=== PATIENT | male | born 1965 ===

== ENCOUNTER 2023-04-02 02:11 | Inpatient (IN) | payer OTHER ==
[2023-04-02 04:02] LABS: BASO % 0.6 % (0-2.0); EOS % 7.1 % (0-4.5); HEMATOCRIT 29.1 % (35.4-49); HEMOGLOBIN 9.1 GM/dL (11.7-16.9); LYMPH % 23.7 % (8-40); MCHC 31.4 g/dl (32.0-35.9); MEAN CELL VOLUME 95.6 fl (80-96); MEAN PLT VOLUME 9.4 fl (7.5-11.1); MONO % 3.7 % (3.8-10.2); NEUT % 64.9 % (42.8-82.8); PLATELET COUNT 225 10^3/uL (134-434); RBC 3.05 M/mm3 (4.00-5.60); RDW 18.7 % (11.9-15.9); WHITE BLOOD COUNT 9.5 K/mm3 (4.0-10.0)
[2023-04-02 04:34] LABS: POTASSIUM 3.5 mmol/L (3.5-5.1)
[2023-04-02 04:36] LABS: CALCIUM 9.1 mg/dL (8.5-10.1)
[2023-04-02 04:37] LABS: ALBUMIN 2.7 g/dl (3.4-5.0); BLOOD UREA NITROGEN 38.9 mg/dL (7-18); MAGNESIUM 2.9 mg/dL (1.8-2.4)
[2023-04-02 04:40] LABS: CREATININE 0.5 mg/dL (0.55-1.3)
[2023-04-02 04:42] LABS: BILIRUBIN,TOTAL 0.4 mg/dL (0.2-1); TOT PROT 7.1 g/dl (6.4-8.2)
[2023-04-02] MEDS: SODIUM CHLORIDE 1,000 ML IV SCH (06:14)
[2023-04-02 06:59] LABS: EPI CELLS 14 /uL (0-25.1); HYALINE CASTS 3 /uL (0-3.1); PH,URINE 7.5 (5.0-8.0); URINE APPEARANCE CLEAR; URINE BACTERIA 7 /uL (0-1359); URINE BILIRUBIN NEGATIVE (NEGATIVE); URINE COLOR YELLOW; URINE GLUCOSE (UA) NEGATIVE (NEGATIVE); URINE KETONE NEGATIVE (NEGATIVE); URINE LEUK ESTERASE 1+ (NEGATIVE); URINE NITRITE NEGATIVE (NEGATIVE); URINE PROTEIN TRACE (NEGATIVE); URINE RBC 115 /uL (0-23.9); URINE UROBILINOGEN 0.2 mg/dL (0.2-1.0); URINE WBC 52 /uL (0-25.8)
[2023-04-02 07:51] LABS: YEAST NEGATIVE (NEGATIVE)
[2023-04-02 10:18] LABS: POTASSIUM 3.4 mmol/L (3.5-5.1)
[2023-04-02 10:19] LABS: CALCIUM 9.5 mg/dL (8.5-10.1)
[2023-04-02 10:20] LABS: BLOOD UREA NITROGEN 37.1 mg/dL (7-18)
[2023-04-02 10:23] LABS: CREATININE 0.4 mg/dL (0.55-1.3)
[2023-04-02] MEDS ORDERED: SODIUM CHLORIDE 0.45% 1,000 ML with POTASSIUM CHLORIDE 20 MEQ IV SCH (11:45)
[2023-04-02] MEDS ORDERED: SODIUM CHLORIDE 0.45% 1,000 ML IV SCH (11:45)
[2023-04-02] MEDS ORDERED: ACETAMINOPHEN 1000 MG/100 ML BAG IVPB PRN (11:47)
[2023-04-02] MEDS ORDERED: ALBUTEROL SO4 2.5/IPRATROPIUM 0.5 INH SOL 3 ML VIAL.NEB. NEB ONE (12:13)
[2023-04-02] MEDS: ALBUTEROL SO4 2.5/IPRATROPIUM 0.5 INH SOL 3 ML VIAL.NEB. NEB SCH (12:17)
[2023-04-02] MEDS: POTASSIUM CHLORIDE 20 MEQ in DEXTROSE 5%-WATER - 1,000 ML IV SCH (18:36)
[2023-04-02] MEDS: POTASSIUM CHLORIDE ORAL LIQUID 20 MEQ/15 ML PO ONE (18:36)
[2023-04-03 02:15] LABS: BLOOD UREA NITROGEN 35.1 mg/dL (7-18); CALCIUM 9.1 mg/dL (8.5-10.1); CREATININE 0.4 mg/dL (0.55-1.3); POTASSIUM 3.5 mmol/L (3.5-5.1)
[2023-04-03 09:59] LABS: BASO % 0.5 % (0-2.0); EOS % 2.7 % (0-4.5); HEMATOCRIT 29.2 % (35.4-49); HEMOGLOBIN 9.2 GM/dL (11.7-16.9); LYMPH % 17.6 % (8-40); MCH 30.1 pg (25.7-33.7); MCHC 31.5 g/dl (32.0-35.9); MEAN CELL VOLUME 95.7 fl (80-96); MEAN PLT VOLUME 9.5 fl (7.5-11.1); NEUT % 74.2 % (42.8-82.8); PLATELET COUNT 219 10^3/uL (134-434); RBC 3.05 M/mm3 (4.00-5.60); RDW 19.3 % (11.9-15.9)
[2023-04-03 10:34] LABS: ALBUMIN 2.6 g/dl (3.4-5.0); BILIRUBIN,TOTAL 0.5 mg/dL (0.2-1); BLOOD UREA NITROGEN 25.5 mg/dL (7-18); CALCIUM 9.5 mg/dL (8.5-10.1); CREATININE 0.4 mg/dL (0.55-1.3); MAGNESIUM 2.5 mg/dL (1.8-2.4); PHOSPHOROUS 2.4 mg/dL (2.5-4.9); POTASSIUM 3.9 mmol/L (3.5-5.1); TOT PROT 7.2 g/dl (6.4-8.2)
[2023-04-03 20:32] VITALS: BMI 24.5
[2023-04-03] MEDS: ASCORBIC ACID 500 MG TABLET (FP) GT SCH (21:23)
[2023-04-03] MEDS ORDERED: ASCORBIC ACID 500 MG TABLET (FP) PO SCH (22:00)
[2023-04-04] MEDS: AMINO ACIDS/PROTEIN HYDROLYS 30 ML LIQUID.PKT PO SCH (08:33)
[2023-04-04 08:50] LABS: BASO % 0.7 % (0-2.0); HEMATOCRIT 27.5 % (35.4-49); HEMOGLOBIN 8.6 GM/dL (11.7-16.9); LYMPH % 23.2 % (8-40); MCH 30.1 pg (25.7-33.7); MCHC 31.3 g/dl (32.0-35.9); MEAN CELL VOLUME 96.3 fl (80-96); MEAN PLT VOLUME 9.3 fl (7.5-11.1); MONO % 5.1 % (3.8-10.2); PLATELET COUNT 217 10^3/uL (134-434); RBC 2.86 M/mm3 (4.00-5.60); RDW 19.4 % (11.9-15.9); WHITE BLOOD COUNT 8.5 K/mm3 (4.0-10.0)
[2023-04-04 09:03] LABS: POTASSIUM 3.8 mmol/L (3.5-5.1)
[2023-04-04 09:13] LABS: CALCIUM 9.1 mg/dL (8.5-10.1)
[2023-04-04 09:14] LABS: ALBUMIN 2.4 g/dl (3.4-5.0); BLOOD UREA NITROGEN 18.2 mg/dL (7-18)
[2023-04-04 09:16] LABS: CREATININE 0.3 mg/dL (0.55-1.3)
[2023-04-04 09:17] LABS: BILIRUBIN,TOTAL 0.4 mg/dL (0.2-1)
[2023-04-04 09:18] LABS: TOT PROT 6.7 g/dl (6.4-8.2)
[2023-04-04] MEDS: MULTIVITAMINS (DAILY MVI) TABLET (FP) PO SCH (10:32)
[2023-04-04] MEDS: ZINC SULFATE 220 MG CAPSULE (FP) PO SCH (10:33)
[2023-04-05 12:26] LABS: EOS % 4.3 % (0-4.5); HEMATOCRIT 31.7 % (35.4-49); LYMPH % 24.2 % (8-40); MCH 30.1 pg (25.7-33.7); MCHC 31.4 g/dl (32.0-35.9); MEAN CELL VOLUME 95.7 fl (80-96); MEAN PLT VOLUME 9.3 fl (7.5-11.1); MONO % 5.5 % (3.8-10.2); PLATELET COUNT 257 10^3/uL (134-434); RBC 3.31 M/mm3 (4.00-5.60); RDW 19.3 % (11.9-15.9); WHITE BLOOD COUNT 9.1 K/mm3 (4.0-10.0)
[2023-04-05 12:38] LABS: POTASSIUM 4.1 mmol/L (3.5-5.1)
[2023-04-05 12:44] LABS: CALCIUM 9.4 mg/dL (8.5-10.1)
[2023-04-05 12:45] LABS: ALBUMIN 2.6 g/dl (3.4-5.0); BLOOD UREA NITROGEN 19.1 mg/dL (7-18)
[2023-04-05 12:48] LABS: CREATININE 0.3 mg/dL (0.55-1.3)
[2023-04-05 12:50] LABS: BILIRUBIN,TOTAL 0.4 mg/dL (0.2-1)
[2023-04-07 09:26] LABS: BASO % 1.3 % (0-2.0); EOS % 4.9 % (0-4.5); HEMATOCRIT 28.2 % (35.4-49); LYMPH % 24.4 % (8-40); MCH 30.1 pg (25.7-33.7); MCHC 31.9 g/dl (32.0-35.9); MEAN CELL VOLUME 94.2 fl (80-96); MONO % 5.9 % (3.8-10.2); NEUT % 63.5 % (42.8-82.8); PLATELET COUNT 288 10^3/uL (134-434); RDW 19.4 % (11.9-15.9); WHITE BLOOD COUNT 9.1 K/mm3 (4.0-10.0)
[2023-04-07 09:47] LABS: POTASSIUM 4.6 mmol/L (3.5-5.1)
[2023-04-07 09:53] LABS: ALBUMIN 2.5 g/dl (3.4-5.0); BLOOD UREA NITROGEN 26.8 mg/dL (7-18); CALCIUM 8.6 mg/dL (8.5-10.1)
[2023-04-07 09:57] LABS: CREATININE 0.3 mg/dL (0.55-1.3)
[2023-04-07 09:58] LABS: BILIRUBIN,TOTAL 0.5 mg/dL (0.2-1); TOT PROT 6.8 g/dl (6.4-8.2)
[2023-04-07 21:51] VITALS: RESP 20
[2023-04-08 13:32] VITALS: BP 149/93; TEMP 99.3
[2023-04-08 22:10] VITALS: PULSE 108
== END 2023-04-08 21:35 | DRG 425 ==
LOC: JER 02:11 → JERBED 04:55 → OBSVTOIN 11:39 → J8W 13:20 → J7W 15:34
PROVIDERS: ADMIT Internal Medicine; ATTEND Internal Medicine
DX: E87.0 Hyperosmolality and hypernatremia (principal); R53.2 Functional quadriplegia; J96.10 Chronic respiratory failure, unspecified whether with hypoxia or hypercapnia; L89.893 Pressure ulcer of other site, stage 3; L89.210 Pressure ulcer of right hip, unstageable; L89.320 Pressure ulcer of left buttock, unstageable; L89.610 Pressure ulcer of right heel, unstageable; E87.6 Hypokalemia; G40.909 Epilepsy, unspecified, not intractable, without status epilepticus; I25.10 Atherosclerotic heart disease of native coronary artery without angina pectoris; D64.9 Anemia, unspecified; Z86.73 Personal history of transient ischemic attack (TIA), and cerebral infarction without residual deficits; Z93.0 Tracheostomy status; Z93.1 Gastrostomy status
CPT/HCPCS: 36415; 71045-TC-FY; 80048; 80053; 81003; 82436; 82570; 82728; 83540; 83550; 83735; 84100; 84133; 84300; 84466; 84484; 85025; 87086; 93005; 93010; 94640; 97161-GP; 99285-25; G0378

== ENCOUNTER 2023-04-14 18:46 | Inpatient (IN) | payer OTHER ==
[2023-04-14 20:00] LABS: VENOUS BASE EXCESS 7.6 mmol/L (-2-2); VENOUS O2 SATURATION 92.7 % (70-80); VENOUS PH 7.449 (7.310-7.410)
[2023-04-14 20:06] LABS: BASO % 0.5 % (0-2.0); EOS % 0.2 % (0-4.5); HEMATOCRIT 29.3 % (35.4-49); HEMOGLOBIN 8.9 GM/dL (11.7-16.9); LYMPH % 18.9 % (8-40); MCH 28.5 pg (25.7-33.7); MCHC 30.3 g/dl (32.0-35.9); MEAN CELL VOLUME 94.1 fl (80-96); MEAN PLT VOLUME 8.8 fl (7.5-11.1); MONO % 5.5 % (3.8-10.2); NEUT % 74.9 % (42.8-82.8); PLATELET COUNT 169 10^3/uL (134-434); RBC 3.12 M/mm3 (4.00-5.60); RDW 20.3 % (11.9-15.9); WHITE BLOOD COUNT 11.5 K/mm3 (4.0-10.0)
[2023-04-14 20:12] LABS: INR 1.22 (0.83-1.09); PROTHROMBIN TIME (PATIENT) 14.1 SEC (9.7-13.0)
[2023-04-14 20:14] LABS: ACTIVATED PTT 28.6 SECONDS (25.2-36.5)
[2023-04-14] MEDS ORDERED: ACETAMINOPHEN INJECTION 100 ML IVPB ONE (20:23)
[2023-04-14] MEDS ORDERED: PIPERACILLIN/TAZOB 4.5 GM 4.5 GM/100 ML BAG IVPB ONE (20:23)
[2023-04-14 20:25] LABS: POTASSIUM 4.1 mmol/L (3.5-5.1)
[2023-04-14 20:27] LABS: CALCIUM 8.2 mg/dL (8.5-10.1)
[2023-04-14 20:28] LABS: ALBUMIN 2.4 g/dl (3.4-5.0)
[2023-04-14 20:31] LABS: CREATININE 0.7 mg/dL (0.55-1.3)
[2023-04-14 20:32] LABS: BILIRUBIN,TOTAL 0.4 mg/dL (0.2-1); TOT PROT 6.4 g/dl (6.4-8.2)
[2023-04-14] MEDS: LACTATED RINGERS SOLUTION 1000 ML INFUS.BAG IV ONE ×2 (20:32→21:40)
[2023-04-14] MEDS: PIPERACILLIN/TAZOB 4.5 GM 4.5 GM in DEXTROSE 5%-WATER 100 ML IVPB ONE (20:32)
[2023-04-14] MEDS: ACETAMINOPHEN 1000 MG/100 ML BAG IVPB ONE (20:32)
[2023-04-14 20:37] LABS: BLOOD UREA NITROGEN 55.7 mg/dL (7-18)
[2023-04-14 22:34] LABS: EPI CELLS >36 /uL (0-25.1); HYALINE CASTS 0 /uL (0-3.1); PH,URINE 5.5 (5.0-8.0); URINE APPEARANCE CLOUDY; URINE BACTERIA 37 /uL (0-1359); URINE BILIRUBIN NEGATIVE (NEGATIVE); URINE COLOR DK YELLOW; URINE GLUCOSE (UA) NEGATIVE (NEGATIVE); URINE KETONE NEGATIVE (NEGATIVE); URINE LEUK ESTERASE 2+ (NEGATIVE); URINE NITRITE NEGATIVE (NEGATIVE); URINE PROTEIN 1+ (NEGATIVE); URINE RBC 7248 /uL (0-23.9); URINE UROBILINOGEN 0.2 mg/dL (0.2-1.0); URINE WBC 204 /uL (0-25.8)
[2023-04-14] MEDS: VANCOMYCIN HCL 1,500 MG in DEXTROSE 5%-WATER - 500 ML IVPB ONE (22:44)
[2023-04-14] MEDS: VANCOMYCIN 500 MG in DEXTROSE 5%-WATER - 100 ML IVPB ONE (22:52)
[2023-04-14] MEDS: VANCOMYCIN 1,000 MG in DEXTROSE 5%-WATER - 250 ML IVPB ONE (22:52)
[2023-04-15] MEDS ORDERED: ALBUTEROL SO4 0.083% IH SOL 2.5 MG/3 ML VIAL.NEB. NEB PRN (05:40)
[2023-04-15] MEDS ORDERED: ACETAMINOPHEN 1000 MG/100 ML BAG IVPB PRN (05:42)
[2023-04-15 06:13] LABS: POTASSIUM 3.6 mmol/L (3.5-5.1)
[2023-04-15 06:15] LABS: BLOOD UREA NITROGEN 49.8 mg/dL (7-18); CALCIUM 8.1 mg/dL (8.5-10.1)
[2023-04-15 06:19] LABS: CREATININE 0.7 mg/dL (0.55-1.3)
[2023-04-15] MEDS ORDERED: BACLOFEN 10 MG TABLET (FP) ONE (07:40)
[2023-04-15] MEDS ORDERED: PIPERACILLIN/TAZOB 4.5 GM 4.5 GM/100 ML BAG IVPB ONE ×2 (07:46→14:18)
[2023-04-15] MEDS ORDERED: VANCOMYCIN 1 GRAM (PRE-DOCKED) 1,000 MG/250 ML BAG IVPB ONE (07:47)
[2023-04-15 08:04] LABS: BASO % 0.3 % (0-2.0); HEMATOCRIT 27.7 % (35.4-49); HEMOGLOBIN 8.9 GM/dL (11.7-16.9); MCH 30.1 pg (25.7-33.7); MEAN CELL VOLUME 94.1 fl (80-96); MONO % 10.2 % (3.8-10.2); NEUT % 60.5 % (42.8-82.8); PLATELET COUNT 166 10^3/uL (134-434); RBC 2.94 M/mm3 (4.00-5.60); RDW 19.7 % (11.9-15.9); WHITE BLOOD COUNT 16.3 K/mm3 (4.0-10.0)
[2023-04-15] MEDS: AMINO ACIDS/PROTEIN HYDROLYS 30 ML LIQUID.PKT GT SCH (08:16)
[2023-04-15] MEDS: GABAPENTIN 100 MG CAPSULE GT SCH (08:16)
[2023-04-15] MEDS: PIPERACILLIN/TAZOB 4.5 GM 4.5 GM in DEXTROSE 5%-WATER 100 ML IVPB SCH ×3 (08:16→22:00)
[2023-04-15] MEDS: BACLOFEN 10 MG TABLET (FP) GT SCH (09:12)
[2023-04-15] MEDS: ZINC SULFATE 220 MG CAPSULE (FP) GT SCH (09:12)
[2023-04-15] MEDS: levETIRAcetam 500 MG/5 ML ORAL SOLUTION (UNIT-DOSE CUPS) GT SCH (09:12)
[2023-04-15] MEDS: VANCOMYCIN/WATER FOR INJ (PEG) 1,000 MG/200 ML BAG IVPB SCH (09:21)
[2023-04-15] MEDS: ASCORBIC ACID 500 MG/5 ML UNIT DOSE CUP GT SCH (09:21)
[2023-04-15] MEDS: VANCOMYCIN 1,000 MG in DEXTROSE 5%-WATER - 250 ML IVPB SCH (17:49)
[2023-04-16 06:41] LABS: BASO % 0.4 % (0-2.0); EOS % 1.8 % (0-4.5); HEMATOCRIT 26.3 % (35.4-49); HEMOGLOBIN 8.3 GM/dL (11.7-16.9); LYMPH % 16.5 % (8-40); MCH 29.6 pg (25.7-33.7); MCHC 31.8 g/dl (32.0-35.9); MEAN CELL VOLUME 93.1 fl (80-96); MEAN PLT VOLUME 9.1 fl (7.5-11.1); MONO % 4.2 % (3.8-10.2); NEUT % 77.1 % (42.8-82.8); PLATELET COUNT 158 10^3/uL (134-434); RBC 2.82 M/mm3 (4.00-5.60); RDW 19.6 % (11.9-15.9); WHITE BLOOD COUNT 8.3 K/mm3 (4.0-10.0)
[2023-04-16 07:01] LABS: CHLORIDE 109 mmol/L (98-107); SODIUM 147 mmol/L (136-145)
[2023-04-16 07:04] LABS: CALCIUM 8.2 mg/dL (8.5-10.1)
[2023-04-16 07:05] LABS: ALBUMIN 2.3 g/dl (3.4-5.0); BLOOD UREA NITROGEN 35.8 mg/dL (7-18); CO2 32 mmol/L (21-32); GLUCOSE,RANDOM 100 mg/dL (74-106)
[2023-04-16 07:06] LABS: CREATININE 0.3 mg/dL (0.55-1.3); SGPT/ALT 39 U/L (13-61)
[2023-04-16 07:08] LABS: BILIRUBIN,TOTAL 0.6 mg/dL (0.2-1); SGOT/AST 20 U/L (15-37); TOT PROT 6.2 g/dl (6.4-8.2)
[2023-04-16 07:09] LABS: ALK PHOS 59 U/L (45-117)
[2023-04-16 07:10] LABS: ANION GAP 5 mmol/L (4-13); POTASSIUM 2.7 mmol/L (3.5-5.1)
[2023-04-16] MEDS: KCL 10 MEQ IVPB 10 MEQ/100 ML INFUS.BAG IVPB SCH (11:17)
[2023-04-16 12:16] VITALS: BMI 20.7
[2023-04-16 19:04] LABS: CHLORIDE 108 mmol/L (98-107); SODIUM 147 mmol/L (136-145)
[2023-04-16 19:05] LABS: CALCIUM 8.5 mg/dL (8.5-10.1)
[2023-04-16 19:06] LABS: BLOOD UREA NITROGEN 33.4 mg/dL (7-18); CO2 31 mmol/L (21-32); GLUCOSE,RANDOM 113 mg/dL (74-106)
[2023-04-16 19:09] LABS: CREATININE 0.4 mg/dL (0.55-1.3)
[2023-04-16 19:39] LABS: ANION GAP 8 mmol/L (4-13); POTASSIUM 2.9 mmol/L (3.5-5.1)
[2023-04-17 03:01] LABS: MAGNESIUM 2.4 mg/dL (1.8-2.4)
[2023-04-17 08:11] LABS: CHLORIDE 110 mmol/L (98-107); SODIUM 149 mmol/L (136-145)
[2023-04-17 08:14] LABS: BLOOD UREA NITROGEN 26.2 mg/dL (7-18); CALCIUM 8.2 mg/dL (8.5-10.1); CO2 29 mmol/L (21-32); GLUCOSE,RANDOM 114 mg/dL (74-106); MAGNESIUM 2.6 mg/dL (1.8-2.4)
[2023-04-17 08:17] LABS: CREATININE 0.3 mg/dL (0.55-1.3)
[2023-04-17 08:22] LABS: ANION GAP 10 mmol/L (4-13); POTASSIUM 2.9 mmol/L (3.5-5.1)
[2023-04-17 09:17] LABS: BASO % 1.5 % (0-2.0); EOS % 1.9 % (0-4.5); HEMATOCRIT 27.7 % (35.4-49); HEMOGLOBIN 8.8 GM/dL (11.7-16.9); LYMPH % 19.9 % (8-40); MCHC 31.7 g/dl (32.0-35.9); MEAN CELL VOLUME 94.9 fl (80-96); MEAN PLT VOLUME 9.4 fl (7.5-11.1); MONO % 4.2 % (3.8-10.2); NEUT % 72.5 % (42.8-82.8); PLATELET COUNT 180 10^3/uL (134-434); RBC 2.92 M/mm3 (4.00-5.60); RDW 20.1 % (11.9-15.9); WHITE BLOOD COUNT 8.9 K/mm3 (4.0-10.0)
[2023-04-17] MEDS: POTASSIUM CHLORIDE ORAL LIQUID 20 MEQ/15 ML PO ONE (11:31)
[2023-04-17 14:28] LABS: TOTAL IRON BINDING CAPACITY 137 ug/dL (250-450)
[2023-04-17 14:29] LABS: IRON SERUM 30 ug/dL (50-175)
[2023-04-17] MEDS: KCL 10 MEQ IVPB 10 MEQ/100 ML INFUS.BAG IVPB SCH (14:53)
[2023-04-18 08:38] LABS: BASO % 0.8 % (0-2.0); EOS % 2.3 % (0-4.5); HEMATOCRIT 28.1 % (35.4-49); HEMOGLOBIN 9.1 GM/dL (11.7-16.9); LYMPH % 19.9 % (8-40); MCHC 32.3 g/dl (32.0-35.9); MONO % 4.4 % (3.8-10.2); NEUT % 72.6 % (42.8-82.8); PLATELET COUNT 192 10^3/uL (134-434); RBC 3.02 M/mm3 (4.00-5.60); WHITE BLOOD COUNT 10.6 K/mm3 (4.0-10.0)
[2023-04-18 09:00] LABS: POTASSIUM 3.6 mmol/L (3.5-5.1)
[2023-04-18 09:02] LABS: CALCIUM 8.6 mg/dL (8.5-10.1)
[2023-04-18] MEDS: ACETAMINOPHEN 1000 MG/100 ML BAG IVPB PRN (09:02)
[2023-04-18 09:06] LABS: CREATININE 0.4 mg/dL (0.55-1.3)
[2023-04-18] MEDS ORDERED: COLLAGENASE CLOSTRIDIUM HIST. 30 GRAMS TUBE TP SCH (11:15)
[2023-04-19] MEDS: ALBUTEROL SO4 2.5/IPRATROPIUM 0.5 INH SOL 3 ML VIAL.NEB. NEB SCH (15:45)
[2023-04-20] MEDS: PIPERACILLIN/TAZOB 3.375 GM 3.375 GM in DEXTROSE 5%-WATER - 50 ML IVPB SCH (18:25)
[2023-04-22] MEDS: MULTIVIT-MINERALS ORAL LIQUID PO SCH (14:50)
[2023-04-22] MEDS: ACETAMINOPHEN 1000 MG/100 ML BAG IVPB PRN (18:45)
[2023-04-22] MEDS: VANCOMYCIN/WATER FOR INJ (PEG) 1,000 MG/200 ML BAG IVPB SCH (19:33)
[2023-04-23] MEDS: GABAPENTIN 100 MG CAPSULE GT SCH (13:53)
[2023-04-23] MEDS: ALBUTEROL SO4 2.5/IPRATROPIUM 0.5 INH SOL 3 ML VIAL.NEB. NEB SCH (15:45)
[2023-04-23 15:54] LABS: BASO % 0.8 % (0-2.0); EOS % 3.4 % (0-4.5); HEMATOCRIT 30.6 % (35.4-49); HEMOGLOBIN 9.5 GM/dL (11.7-16.9); LYMPH % 21.1 % (8-40); MCH 29.1 pg (25.7-33.7); MCHC 30.9 g/dl (32.0-35.9); MEAN CELL VOLUME 94.1 fl (80-96); MONO % 5.8 % (3.8-10.2); NEUT % 68.9 % (42.8-82.8); PLATELET COUNT 289 10^3/uL (134-434); RBC 3.26 M/mm3 (4.00-5.60); RDW 20.1 % (11.9-15.9); WHITE BLOOD COUNT 10.9 K/mm3 (4.0-10.0)
[2023-04-23 16:13] LABS: POTASSIUM 3.1 mmol/L (3.5-5.1)
[2023-04-23 16:15] LABS: ALBUMIN 2.5 g/dl (3.4-5.0); BLOOD UREA NITROGEN 37.4 mg/dL (7-18); CALCIUM 8.6 mg/dL (8.5-10.1)
[2023-04-23 16:18] LABS: CREATININE 0.4 mg/dL (0.55-1.3)
[2023-04-23 16:20] LABS: BILIRUBIN,TOTAL 0.3 mg/dL (0.2-1); TOT PROT 6.8 g/dl (6.4-8.2)
[2023-04-23] MEDS: PIPERACILLIN/TAZOB 3.375 GM 3.375 GM in DEXTROSE 5%-WATER - 50 ML IVPB SCH (17:30)
[2023-04-23] MEDS: AMINO ACIDS/PROTEIN HYDROLYS 30 ML LIQUID.PKT GT SCH (17:30)
[2023-04-23] MEDS: BACLOFEN 10 MG TABLET (FP) GT SCH (21:32)
[2023-04-23] MEDS: levETIRAcetam 500 MG/5 ML ORAL SOLUTION (UNIT-DOSE CUPS) GT SCH (21:32)
[2023-04-23] MEDS: ACETAMINOPHEN 1000 MG/100 ML BAG IVPB ONE (21:33)
[2023-04-24 08:59] LABS: BASO % 0.5 % (0-2.0); EOS % 2.7 % (0-4.5); HEMATOCRIT 29.1 % (35.4-49); HEMOGLOBIN 8.9 GM/dL (11.7-16.9); LYMPH % 18.8 % (8-40); MCH 28.8 pg (25.7-33.7); MCHC 30.6 g/dl (32.0-35.9); MEAN CELL VOLUME 94.2 fl (80-96); MONO % 4.1 % (3.8-10.2); NEUT % 73.9 % (42.8-82.8); PLATELET COUNT 275 10^3/uL (134-434); RBC 3.09 M/mm3 (4.00-5.60); RDW 20.2 % (11.9-15.9); WHITE BLOOD COUNT 11.9 K/mm3 (4.0-10.0)
[2023-04-24 09:18] LABS: POTASSIUM 3.1 mmol/L (3.5-5.1)
[2023-04-24 09:20] LABS: CALCIUM 8.7 mg/dL (8.5-10.1)
[2023-04-24 09:21] LABS: ALBUMIN 2.3 g/dl (3.4-5.0); BLOOD UREA NITROGEN 38.9 mg/dL (7-18)
[2023-04-24 09:24] LABS: CREATININE 0.4 mg/dL (0.55-1.3)
[2023-04-24 09:25] LABS: BILIRUBIN,TOTAL 0.3 mg/dL (0.2-1)
[2023-04-24 09:26] LABS: TOT PROT 6.5 g/dl (6.4-8.2)
[2023-04-24] MEDS: ASCORBIC ACID 500 MG/5 ML UNIT DOSE CUP GT SCH (09:58)
[2023-04-24] MEDS: ZINC SULFATE 220 MG CAPSULE (FP) GT SCH (09:59)
[2023-04-24] MEDS: POTASSIUM CHLORIDE ORAL LIQUID 20 MEQ/15 ML PEG SCH (14:24)
[2023-04-24] MEDS: ACETAMINOPHEN 1000 MG/100 ML BAG IVPB ONE (17:30)
[2023-04-24] MEDS ORDERED: ACETAMINOPHEN INJECTION 100 ML IVPB ONE (17:30)
[2023-04-24] MEDS: IBUPROFEN 400 MG TABLET (FP) PO ONE (18:54)
[2023-04-25] MEDS: PIPERACILLIN/TAZOB 3.375 GM 3.375 GM in DEXTROSE 5%-WATER - 50 ML IVPB SCH (03:13)
[2023-04-25] MEDS: ACETAMINOPHEN 325 MG TABLET (FP) PO PRN (06:07)
[2023-04-25] MEDS ORDERED: ACETAMINOPHEN 1000 MG/100 ML BAG IVPB PRN (09:35)
[2023-04-25 10:35] LABS: BASO % 0.8 % (0-2.0); EOS % 1.8 % (0-4.5); HEMATOCRIT 28.2 % (35.4-49); HEMOGLOBIN 8.4 GM/dL (11.7-16.9); LYMPH % 19.1 % (8-40); MCH 28.5 pg (25.7-33.7); MCHC 29.8 g/dl (32.0-35.9); MEAN CELL VOLUME 95.4 fl (80-96); MEAN PLT VOLUME 8.7 fl (7.5-11.1); MONO % 4.4 % (3.8-10.2); NEUT % 73.9 % (42.8-82.8); PLATELET COUNT 250 10^3/uL (134-434); RBC 2.96 M/mm3 (4.00-5.60); RDW 20.5 % (11.9-15.9); WHITE BLOOD COUNT 11.8 K/mm3 (4.0-10.0)
[2023-04-25 11:09] LABS: POTASSIUM 3.5 mmol/L (3.5-5.1)
[2023-04-25 11:10] LABS: CALCIUM 8.7 mg/dL (8.5-10.1)
[2023-04-25] MEDS ORDERED: IBUPROFEN 800 MG/8 ML IJ IVPB PRN (11:10)
[2023-04-25 11:11] LABS: ALBUMIN 2.2 g/dl (3.4-5.0); BLOOD UREA NITROGEN 34.8 mg/dL (7-18)
[2023-04-25 11:14] LABS: CREATININE 0.4 mg/dL (0.55-1.3)
[2023-04-25 11:15] LABS: BILIRUBIN,TOTAL 0.3 mg/dL (0.2-1)
[2023-04-25 11:16] LABS: TOT PROT 6.4 g/dl (6.4-8.2)
[2023-04-25 12:35] LABS: ANISOCYTOSIS 1+; MACROCYTOSIS 0
[2023-04-25] MEDS: ACETAMINOPHEN 1000 MG/100 ML BAG IVPB PRN (13:45)
[2023-04-25] MEDS: ACETAMINOPHEN 1000 MG/100 ML BAG IVPB ONE (13:45)
[2023-04-25] MEDS ORDERED: ACETAMINOPHEN INJECTION 100 ML IVPB ONE (13:47)
[2023-04-25] MEDS: LACTATED RINGERS SOLUTION 1,000 ML IV SCH (14:05)
[2023-04-25] MEDS: PIPERACILLIN/TAZOB 4.5 GM 4.5 GM in DEXTROSE 5%-WATER 100 ML IVPB SCH ×2 (14:31→17:02)
[2023-04-25] MEDS: GABAPENTIN 250 MG/5 ML ORAL SOLUTION, 470 ML BOTTLE GT SCH (15:08)
[2023-04-25] MEDS: ALBUTEROL SO4 2.5/IPRATROPIUM 0.5 INH SOL 3 ML VIAL.NEB. NEB SCH (15:42)
[2023-04-25] MEDS: AMINO ACIDS/PROTEIN HYDROLYS 30 ML LIQUID.PKT GT SCH (16:35)
[2023-04-25] MEDS: VANCOMYCIN/WATER FOR INJ (PEG) 1,000 MG/200 ML BAG IVPB SCH (17:32)
[2023-04-25 20:31] LABS: EPI CELLS 2 /uL (0-25.1); HYALINE CASTS 2 /uL (0-3.1); PH,URINE 6.5 (5.0-8.0); URINE APPEARANCE CLEAR; URINE BACTERIA 5 /uL (0-1359); URINE BILIRUBIN NEGATIVE (NEGATIVE); URINE COLOR YELLOW; URINE GLUCOSE (UA) NEGATIVE (NEGATIVE); URINE KETONE NEGATIVE (NEGATIVE); URINE LEUK ESTERASE 2+ (NEGATIVE); URINE NITRITE NEGATIVE (NEGATIVE); URINE PROTEIN 1+ (NEGATIVE); URINE RBC 9 /uL (0-23.9); URINE UROBILINOGEN 0.2 mg/dL (0.2-1.0); URINE WBC 864 /uL (0-25.8)
[2023-04-25 21:03] LABS: URINE CRYSTALS CA OXALATE /hpf; YEAST PRESENT (NEGATIVE)
[2023-04-25] MEDS: levETIRAcetam 500 MG/5 ML ORAL SOLUTION (UNIT-DOSE CUPS) GT SCH (22:08)
[2023-04-25] MEDS: HEPARIN NA (PORCINE) 5,000 UNITS/ML 1ML VIAL SQ SCH (22:08)
[2023-04-25] MEDS: BACLOFEN 10 MG TABLET (FP) GT SCH (22:19)
[2023-04-26] MEDS: COLLAGENASE CLOSTRIDIUM HIST. 30 GRAMS TUBE TP SCH ×2 (01:12→14:03)
[2023-04-26] MEDS: ACETAMINOPHEN 325 MG TABLET (FP) PO PRN (05:49)
[2023-04-26 09:21] LABS: BASO % 0.5 % (0-2.0); EOS % 2.5 % (0-4.5); HEMATOCRIT 28.1 % (35.4-49); HEMOGLOBIN 8.7 GM/dL (11.7-16.9); LYMPH % 15.9 % (8-40); MCH 29.3 pg (25.7-33.7); MEAN CELL VOLUME 94.4 fl (80-96); MEAN PLT VOLUME 9.1 fl (7.5-11.1); MONO % 5.2 % (3.8-10.2); NEUT % 75.9 % (42.8-82.8); PLATELET COUNT 253 10^3/uL (134-434); RBC 2.97 M/mm3 (4.00-5.60); RDW 20.1 % (11.9-15.9); WHITE BLOOD COUNT 10.6 K/mm3 (4.0-10.0)
[2023-04-26] MEDS: ASCORBIC ACID 500 MG/5 ML UNIT DOSE CUP GT SCH (09:39)
[2023-04-26] MEDS: ZINC SULFATE 220 MG CAPSULE (FP) GT SCH (09:39)
[2023-04-26] MEDS: MULTIVIT-MINERALS ORAL LIQUID PO SCH (09:39)
[2023-04-26 09:58] LABS: POTASSIUM 3.5 mmol/L (3.5-5.1)
[2023-04-26 10:01] LABS: ALBUMIN 2.2 g/dl (3.4-5.0); BLOOD UREA NITROGEN 28.3 mg/dL (7-18); CALCIUM 8.8 mg/dL (8.5-10.1)
[2023-04-26 10:04] LABS: CREATININE 0.4 mg/dL (0.55-1.3)
[2023-04-26 10:06] LABS: BILIRUBIN,TOTAL 0.3 mg/dL (0.2-1); TOT PROT 6.2 g/dl (6.4-8.2)
[2023-04-26] MEDS ORDERED: CEFEPIME HCL 2 GM VIAL (RESTRICTED TO ID) IVPB SCH (17:00)
[2023-04-26] MEDS: CEFEPIME 2 GM in DEXTROSE 5%-WATER 100 ML IVPB SCH (17:38)
[2023-04-27] MEDS: COLLAGENASE CLOSTRIDIUM HIST. 30 GRAMS TUBE TP SCH (10:43)
[2023-04-27] MEDS: IRON SUCROSE INJECTION 200 MG in SODIUM CHLORIDE 100 ML IVPB ONE (13:54)
[2023-04-28] MEDS: ENOXAPARIN NA (PORCINE) 80 MG/0.8 ML DISP.SYRIN SQ SCH (11:52)
[2023-04-28] MEDS: IBUPROFEN 800 MG/8 ML IJ IVPB PRN (16:46)
[2023-04-28 22:26] VITALS: RESP 18
[2023-04-29 18:49] VITALS: BP 143/89; PULSE 108; TEMP 101
== END 2023-04-29 21:19 | DRG 710 ==
LOC: JER 18:46 → JERBED 23:14 → J4W 04-15 18:09 → J5S 04-23 12:24
PROVIDERS: ADMIT Internal Medicine; ATTEND Family Medicine
PROC: 0JB70ZZ Excision of Back Subcutaneous Tissue and Fascia, Open Approach (ICD-10-PCS; 2023-04-25)
PROC: 0KBP0ZZ Excision of Left Hip Muscle, Open Approach (ICD-10-PCS; principal; 2023-04-25 10:54)
DX: A41.89 Other specified sepsis (principal); J18.9 Pneumonia, unspecified organism; J96.10 Chronic respiratory failure, unspecified whether with hypoxia or hypercapnia; L89.154 Pressure ulcer of sacral region, stage 4; L89.224 Pressure ulcer of left hip, stage 4; R53.2 Functional quadriplegia; Z93.0 Tracheostomy status; Z93.1 Gastrostomy status; E11.9 Type 2 diabetes mellitus without complications; E78.5 Hyperlipidemia, unspecified; F03.90 Unspecified dementia, unspecified severity, without behavioral disturbance, psychotic disturbance, mood disturbance, and anxiety; G40.909 Epilepsy, unspecified, not intractable, without status epilepticus; I10 Essential (primary) hypertension; N39.0 Urinary tract infection, site not specified; J98.11 Atelectasis; E87.6 Hypokalemia
CPT/HCPCS: 0241U-QW; 36415; 71045-TC-FY; 71250-TC; 74178-TC; 80048; 80053; 80177; 81003; 82728; 82803; 82962; 83540; 83550; 83605; 83735; 84484; 85025; 85610; 85730; 86850; 86900; 86901; 87040; 87070; 87077; 87086; 87184; 87186; 87205; 87324; 87449; 87635; 88304-TC; 93005; 93010; 93306-TC; 93970-TC; 94640; 94760; 99285-25; E0186; J0131; J0475; J1644; J1756; Q9967

== ENCOUNTER 2023-05-08 17:19 | Emergency (ER) | payer SELFPAY ==
[2023-05-08] MEDS ORDERED: VANCOMYCIN HCL 1,500 MG in DEXTROSE 5%-WATER - 500 ML IVPB ONE (18:48)
[2023-05-08 19:16] VITALS: BMI 25.7
[2023-05-08] MEDS ORDERED: ACETAMINOPHEN INJECTION 100 ML IVPB ONE (20:25)
[2023-05-08] MEDS ORDERED: PIPERACILLIN/TAZOB 3.375 GM 3.375 GM/50 ML BAG IVPB ONE (20:25)
[2023-05-08] MEDS: ACETAMINOPHEN 1000 MG/100 ML BAG IVPB ONE (20:36)
[2023-05-08 20:43] LABS: HEMATOCRIT 29.6 % (35.4-49); HEMOGLOBIN 8.8 GM/dL (11.7-16.9); MCHC 29.6 g/dl (32.0-35.9); MEAN CELL VOLUME 94.5 fl (80-96); MEAN PLT VOLUME 9.6 fl (7.5-11.1); PLATELET COUNT 386 10^3/uL (134-434); RBC 3.13 M/mm3 (4.00-5.60); WHITE BLOOD COUNT 20.6 K/mm3 (4.0-10.0)
[2023-05-08 20:49] LABS: ADD RBC MORPHOLOGY YES
[2023-05-08 20:50] LABS: INR 1.61 (0.83-1.09); PROTHROMBIN TIME (PATIENT) 18.6 SEC (9.7-13.0)
[2023-05-08 20:53] LABS: ACTIVATED PTT 32.5 SECONDS (25.2-36.5)
[2023-05-08 20:55] LABS: VENOUS BASE EXCESS 10.1 mmol/L (-2-2); VENOUS O2 SATURATION 86.5 % (70-80); VENOUS PCO2 35.9 mmHg (38-52); VENOUS PH 7.574 (7.310-7.410)
[2023-05-08] MEDS: PIPERACILLIN/TAZOB 3.375 GM 3.375 GM in DEXTROSE 5%-WATER - 50 ML IVPB ONE (20:59)
[2023-05-08 21:01] LABS: POTASSIUM 4.2 mmol/L (3.5-5.1)
[2023-05-08 21:05] LABS: CALCIUM 8.9 mg/dL (8.5-10.1)
[2023-05-08 21:06] LABS: BLOOD UREA NITROGEN 40.8 mg/dL (7-18)
[2023-05-08 21:09] LABS: CREATININE 0.6 mg/dL (0.55-1.3)
[2023-05-08 21:10] LABS: BILIRUBIN,TOTAL 0.8 mg/dL (0.2-1)
[2023-05-08 21:11] LABS: TOT PROT 6.8 g/dl (6.4-8.2)
[2023-05-08] MEDS: SODIUM CHLORIDE 0.9% 500 ML INFUS.BAG IV ONE (21:27)
[2023-05-08 21:31] LABS: ANISOCYTOSIS 2+; MACROCYTOSIS 1+; OVALOCYTE 1+
[2023-05-08 21:41] LABS: LACTIC ACID 2.2 mmol/L (0.4-2.0)
[2023-05-08] MEDS: VANCOMYCIN PREMIX 1.5 GM 1,500 MG/300 ML BAG IVPB ONE (22:30)
[2023-05-09 00:39] LABS: EPI CELLS 11 /uL (0-25.1); HYALINE CASTS 1 /uL (0-3.1); PH,URINE 5.5 (5.0-8.0); URINE APPEARANCE CLOUDY; URINE BACTERIA 28 /uL (0-1359); URINE BILIRUBIN NEGATIVE (NEGATIVE); URINE COLOR DK YELLOW; URINE GLUCOSE (UA) NEGATIVE (NEGATIVE); URINE KETONE NEGATIVE (NEGATIVE); URINE LEUK ESTERASE 1+ (NEGATIVE); URINE NITRITE NEGATIVE (NEGATIVE); URINE PROTEIN 2+ (NEGATIVE); URINE UROBILINOGEN 0.2 mg/dL (0.2-1.0); URINE WBC 148 /uL (0-25.8)
[2023-05-09] MEDS ORDERED: ACETAMINOPHEN 325 MG TABLET (FP) PO PRN (02:17)
[2023-05-09] MEDS: ENOXAPARIN NA (PORCINE) 80 MG/0.8 ML DISP.SYRIN SQ SCH (03:08)
[2023-05-09] MEDS: SODIUM CHLORIDE 0.45% 1,000 ML IV SCH (03:16)
[2023-05-09] MEDS ORDERED: ACETAMINOPHEN 1000 MG/100 ML BAG IVPB PRN (03:59)
[2023-05-09 04:24] LABS: URINE RBC 20.2 /uL (0-23.9)
[2023-05-09] MEDS: ACETAMINOPHEN 1000 MG/100 ML BAG IVPB ONE (04:27)
[2023-05-09] MEDS ORDERED: CEFTRIAXONE 2 GM/100 ML BAG IVPB ONE (04:54)
[2023-05-09] MEDS ORDERED: PIPERACILLIN/TAZOB 3.375 GM 3.375 GM/50 ML BAG IVPB ONE (04:55)
[2023-05-09] MEDS: CEFTRIAXONE 2 GM in DEXTROSE 5%-WATER - 50 ML IVPB ONE (04:58)
[2023-05-09] MEDS: PIPERACILLIN/TAZOB 3.375 GM 3.375 GM in DEXTROSE 5%-WATER - 50 ML IVPB SCH (04:58)
[2023-05-09 05:30] VITALS: BP 120/81; PULSE 112; RESP 18
[2023-05-09 05:33] VITALS: TEMP 101.8
[2023-05-09] MEDS ORDERED: INSULIN ASPART SLIDING SCALE (NOVOLOG) 1 VIAL SQ SCH (07:00)
[2023-05-09] MEDS ORDERED: ALBUTEROL SO4 2.5/IPRATROPIUM 0.5 INH SOL 3 ML VIAL.NEB. NEB SCH (08:00)
[2023-05-09] MEDS ORDERED: PIPERACILLIN/TAZOB 3.375 GM 3.375 GM in DEXTROSE 5%-WATER - 50 ML IVPB SCH (10:00)
[2023-05-09] MEDS ORDERED: ENOXAPARIN NA (PORCINE) 80 MG/0.8 ML DISP.SYRIN SQ SCH (10:00)
[2023-05-09] MEDS ORDERED: VANCOMYCIN 1,000 MG in DEXTROSE 5%-WATER - 250 ML IVPB SCH (10:00)
[2023-05-09] MEDS ORDERED: levETIRAcetam 500 MG/5 ML ORAL SOLUTION (UNIT-DOSE CUPS) GT SCH (10:00)
[2023-05-09] MEDS ORDERED: VANCOMYCIN/WATER FOR INJ (PEG) 1,000 MG/200 ML BAG IVPB SCH (21:00)
== END 2023-05-09 05:31 | disposition short-term general hospital (02) ==
LOC: JER 17:19 → JERBED 05-09 01:30 → UNDOADMIN 05-09 01:30 → JER 05-09 05:31
PROC: 3E03329 Introduction of Other Anti-infective into Peripheral Vein, Percutaneous Approach (ICD-10-PCS; principal; 2023-05-08)
PROC: 3E03329 Introduction of Other Anti-infective into Peripheral Vein, Percutaneous Approach (ICD-10-PCS; 2023-05-08)
PROC: 3E03329 Introduction of Other Anti-infective into Peripheral Vein, Percutaneous Approach (ICD-10-PCS; 2023-05-08)
PROC: 3E033GC Introduction of Other Therapeutic Substance into Peripheral Vein, Percutaneous Approach (ICD-10-PCS; 2023-05-08)
DX: R41.82 Altered mental status, unspecified (principal); R00.0 Tachycardia, unspecified; I60.9 Nontraumatic subarachnoid hemorrhage, unspecified; R50.9 Fever, unspecified; R53.83 Other fatigue
CPT/HCPCS: 0241U-QW; 36415; 70450-TC; 71045-TC-FY; 80053; 81003; 82803; 82962; 83605; 84484; 85025; 85610; 85730; 86850; 86900; 86901; 87040; 87086; 87186; 93005; 93010; 99285-25; J0131